=== PATIENT | female | born 1970 | race Caucasian/White ===

== ENCOUNTER → 2017-02-09 | Outpatient (CLI) | payer SELFPAY ==
[~2017-02-09] MED LIST: LIDOCAINE 1%, 20ML ONE; SODIUM BICARBONATE 4.2%, 5ML ONE
== END | disposition home or self-care (01) ==
LOC: RAD 09:46
PROVIDERS: ATTEND Internal Medicine Hematology & Oncology
DX: C50.919 Malignant neoplasm of unspecified site of unspecified female breast (principal); J90 Pleural effusion, not elsewhere classified; R06.02 Shortness of breath
CPT/HCPCS: 32555; 71010; J3490

== ENCOUNTER → 2017-02-10 | Outpatient (CLI) | payer SELFPAY | END | disposition home or self-care (01) | LOC: RAD 14:04 | PROVIDERS: ATTEND Internal Medicine Hematology & Oncology | DX: Z51.11 Encounter for antineoplastic chemotherapy (principal); Z45.2 Encounter for adjustment and management of vascular access device; C50.919 Malignant neoplasm of unspecified site of unspecified female breast | CPT/HCPCS: 36569; 76937; 77001; C1751 ==

== ENCOUNTER 2017-03-02 14:11 | Emergency (ER) | payer SELFPAY ==
[2017-03-02] VITALS (14 sets, daily range): BP systolic 122–142; BP diastolic 85–95
[~2017-03-02] VITALS: Ht 158.8 cm; Wt 60.5 kg
[2017-03-02] MEDS ORDERED: SODIUM CHLORIDE 0.9% 500 ML IV ONE (15:06)
[2017-03-02] MEDS ORDERED: LEVO150T5 PO (15:34)
[2017-03-02 16:02] LABS: DIFF TOTAL CELLS COUNTED 100 CELL DIFF
[2017-03-02 16:04] LABS: VERIFY COUNTS? YES
[2017-03-02 16:06] LABS: ANISOCYTOSIS 1+; LARGE PLATELETS 1+; POLYCHROMASIA 1+
== END 2017-03-02 21:58 | disposition home or self-care (01) ==
LOC: ED 21:52
DX: D64.81 Anemia due to antineoplastic chemotherapy (principal); C50.919 Malignant neoplasm of unspecified site of unspecified female breast; Z88.0 Allergy status to penicillin
CPT/HCPCS: 36415; 85025; 85610; 85730; 86850; 86900; 86923; 96360; 96361; 99285; J7040; P9040

== ENCOUNTER → 2017-09-06 | Outpatient (CLI) | payer SELFPAY ==
[~2017-09-06] MED LIST changes: +LEVO150T5 PO; -LIDOCAINE 1%, 20ML ONE; -SODIUM BICARBONATE 4.2%, 5ML ONE
== END | disposition home or self-care (01) ==
LOC: RAD 07:18
PROVIDERS: ATTEND Internal Medicine Hematology & Oncology
DX: Z45.2 Encounter for adjustment and management of vascular access device (principal); C50.919 Malignant neoplasm of unspecified site of unspecified female breast; J90 Pleural effusion, not elsewhere classified
CPT/HCPCS: 36569; 76937; 77001; C1751; C1769

== ENCOUNTER → 2018-05-09 | Outpatient (CLI) | payer SELFPAY ==
[~2018-05-09] MED LIST changes: +LIDOCAINE-MPF 1%, 2ML ONE
== END ==
LOC: RAD 08:15
PROVIDERS: ATTEND Internal Medicine Hematology & Oncology
DX: Z45.2 Encounter for adjustment and management of vascular access device (principal); C50.919 Malignant neoplasm of unspecified site of unspecified female breast; Z79.899 Other long term (current) drug therapy
CPT/HCPCS: 36569; 76937; 77001; C1751; J3490

== ENCOUNTER 2018-05-11 06:44 | Day surgery (SDC) | payer SELFPAY ==
[~2018-05-11] VITALS: Ht 157.5 cm; Wt 57.0 kg
[~2018-05-11 06:44] MED LIST changes: -LIDOCAINE-MPF 1%, 2ML ONE
[2018-05-11 07:39] VITALS: BP 115/79
[2018-05-11] MEDS ORDERED: SODIUM CHLORIDE 0.9% 1,000 ML IV SCH (07:47)
[2018-05-11] MEDS ORDERED: VANCOMYCIN PMX 1GM/200ML 200 ML IV ONE (08:00)
[2018-05-11] MEDS ORDERED: LIDOCAINE-MPF 2%, 2ML ONE (08:15)
[2018-05-11] MEDS ORDERED: MIDAZOLAM 1 MG/ML, 5ML ONE (08:18)
[2018-05-11] MEDS ORDERED: FLUMAZENIL 0.1 MG/1 ML, 5ML ONE (08:18)
[2018-05-11] MEDS ORDERED: NALOXONE 1 MG/ML, 2ML ONE (08:18)
[2018-05-11] MEDS ORDERED: FENTANYL PF 100 MCG/2ML ONE (08:18)
== END 2018-05-11 10:50 | disposition home or self-care (01) ==
LOC: OUT 06:44
PROVIDERS: ATTEND Internal Medicine Hematology & Oncology
DX: Z45.2 Encounter for adjustment and management of vascular access device (principal); C50.919 Malignant neoplasm of unspecified site of unspecified female breast; Z88.0 Allergy status to penicillin
CPT/HCPCS: 32550; 99156; 99157; J2250; J2310; J3010; J3370; J7030; J3490